=== PATIENT | male | born 1985 | race Caucasian/White ===

== ENCOUNTER 2023-08-27 23:28 | Emergency (ER) | payer SELFPAY ==
[~2023-08-27] VITALS: Ht 185.4 cm; Wt 89.8 kg
[2023-08-27 23:36] VITALS: BP 135/90; TEMP 98.9; O2SAT 100
[2023-08-28] MEDS ORDERED: ACETAMINOPHEN ES 500 MG TABLET ONE (00:18)
[2023-08-28] MEDS ORDERED: IBUPROFEN 400 MG TABLET ONE (00:18)
[2023-08-28] MEDS: ACETAMINOPHEN ES 500 MG TABLET PO ONE (00:25)
[2023-08-28] MEDS: IBUPROFEN 400 MG TABLET PO ONE (00:25)
== END 2023-08-28 05:00 | disposition home or self-care (01) ==
LOC: ER 23:28
DX: S92.531A Displaced fracture of distal phalanx of right lesser toe(s), initial encounter for closed fracture (principal); V09.9XXA Pedestrian injured in unspecified transport accident, initial encounter; Y93.89 Activity, other specified; Y92.89 Other specified places as the place of occurrence of the external cause; Y99.8 Other external cause status
CPT/HCPCS: 73110; 73610-TC; 73630-TC